=== PATIENT | female | born 1945 | race Caucasian/White ===

== ENCOUNTER 2019-10-18 12:16 | Outpatient (CLI) | payer MEDICARE, OTHER, SELFPAY ==
--- NOTE | ~2019-10-18 | DEXA_ITS ---
BMD(1) Young-Adult(2) Region (g/cm2) T-score WHO Classification L1 0.987 -1.3 Osteopenia L2 1.039 -1.4 Osteopenia L3 1.101 -0.9 Normal L4 1.136 -0.6 Normal L1-L4 1.073 -1.0 Normal Trend: L1-L4 Change vs Change vs Measured Age BMD(1) Baseline Previous Date ([age]) (g/cm2) (%) (%) 10/18/2019 [age] 1.073 baseline - 1 - Statistically 68% of repeat scans fall within 1SD (+- 0.010 g/cm2 for AP Spine L1-L4) 2 - [place] (Combined NHANES (ages 20-30) / [place] (ages 20-40)) AP Spine Reference Population (v112) 11 - World Health Organization - Definition of Osteoporosis and Osteopenia for Women: Normal = T-score at or above -1.0 SD; Osteopenia = T-score between -1.0 and -2.5 SD; Osteoporosis = T-score at or below -2.5 SD; (WHO definitions only apply when a young healthy Women reference database is used to determine T-scores.) Printed: 10/18/2019 1:00:54 PM (13.60)76:3.00:50.00:12.0 0.00:11.22 0.60x1.05 21.7:%Fat=37.3% 0.00:0.00 0.00:0.00 Filename: [id number] Scan Mode: Standard;OneScan 37.0 Proximiant [id number] BMD(1) Young-Adult(2,7) Region (g/cm2) T-score WHO Classification Neck Left 0.743 -2.1 Osteopenia Right 0.704 -2.4 Osteopenia Mean 0.724 -2.3 Osteopenia Difference 0.039 0.3 - Total Left 0.800 -1.6 Osteopenia Right 0.764 -1.9 Osteopenia Mean 0.782 -1.8 Osteopenia Difference 0.036 0.3 - Hip Moore Length Comparison (mm) TAMIKO chart results unavailable Trend: Total Mean Change vs Change vs Measured Age BMD(1) Baseline Previous Date (years) (g/cm2) (%) (%) 10/18/2019 [age] 0.782 baseline - 1 - Statistically 68% of repeat scans fall within 1SD (+- 0.010 g/cm2 for DualFemur Total) 2 - [place] (Combined NHANES (ages 20-30) / [place] (ages 20-40)) Femur Reference Population (v112) 7 - DualFemur Total T-score difference is 0.3. Asymmetry is None. 11 - World Health Organization - Definition of Osteoporosis and Osteopenia for Women: Normal = T-score at or above -1.0 SD; Osteopenia = T-score between -1.0 and -2.5 SD; Osteoporosis = T-score at or below -2.5 SD; (WHO definitions only apply when a young healthy Women reference database is used to determine T-scores.) Printed: 10/18/2019 1:00:54 PM (13.60); Filename: [id number]; Right Femur; 18.4:%Fat=42.7%; Neck Angle (deg)= 58; Scan Mode: Standard 37.0 uGy; Left Femur; 18.8:%Fat=42.8%; Neck Angle (deg)= 66; Scan Mode: Standard 37.0 uGy DOZ [id number] Dear Julian Robertson, Your patient Deandra Gilliam completed a BMD test on 10/18/2019 using the DOZ DXA System (analysis version: 13.60) manufactured by [employer]. The following summarizes the results of our evaluation. PATIENT BIOGRAPHICAL: Name: Deandra Gilliam Date: 1945 Height: 61.0 in. Gender: Female Exam Date: 10/18/2019 Weight: 155.0 lbs. Indications: Back Pain, Bilateral Ovarectomy, Caffeinated drinks, , Hip Pain, Hysterectomy Fractures: Treatments: Calcium, Hormone Therapy, Multivitamin ASSESSMENT: The BMD measured at Femur Neck Right is 0.704 g/cm2 with a T-score o
--- NOTE | ~2019-10-18 | CT_ITS ---
EXAMINATION:CT lung screening DATE: 10/18/2019 12:48 INDICATION: Personal history of tobacco dependence. Smoker who quit 4 years ago with 40 pack year his tory. TECHNIQUE: Computed tomography (CT) of the chest was performed without intravenous contrast. Automate d exposure control and iterative reconstruction technique were employed. The dose-length product (DLP ) was 58.20 mGy-cm. COMPARISON: CT abdomen 12/28/2008 FINDINGS: There is mild atelectasis bilaterally. A calcified left lung nodule and calcified left alexsandra r lymph nodes are consistent with old granulomatous disease. No pleural effusion. The heart size is n ormal. There are coronary artery calcifications. No pericardial effusion. There are changes of cholec ystectomy. There is mild thoracic spondylosis. IMPRESSION: 1. Lung-RADS category 1: Negative. Continue annual screening with noncontrast low-dose chest CT in 12 months. Reviewed, dictated and finalized at location B. IMPRESSION: 1. Lung-RADS category 1: Negative. Continue annual screening with noncontrast l ow-dose chest CT in 12 months.
[2019-10-18 12:35] LABS: Hematocrit 45.3 % (35.0-42.0); Hemoglobin 15.1 g/dL (11.7-13.8); Mean Corpuscular HGB Conc 33.3 g/dL (32.0-36.0); Mean Corpuscular Hemoglobin 30.3 pg (27.0-31.0); Mean Platelet Volume 10.9 fl (9.2-11.8); Platelet Count Result 185 K/mm3 (150-420); Red Blood Count 4.98 M/mm3 (4.20-5.40); Red Cell Distribution Width 13.7 % (11.6-14.4); White Blood Count 7.6 K/mm3 (4.8-10.8)
[2019-10-18 13:17] LABS: Alanine Aminotransferase 28 U/L (14-59); Albumin Level 3.9 g/dL (3.4-5.0); Alkaline Phosphatase 77 U/L (46-116); Anion Gap 6 mmol/L (8-16); Aspartate Amino Transferase 31 U/L (15-37); Bilirubin,Total 0.5 mg/dL (0.00-1.00); Blood Urea Nitrogen 16 mg/dL (7-18); Calcium 9.3 mg/dL (8.5-10.1); Carbon Dioxide 29 mmol/L (21-32); Chloride 103 mmol/L (98-108); Estimated Glomerular Filt Rate > 60; Glucose 93 mg/dL (70-99); Osmolality Calculated 287 mOsm/kg (285-295); Potassium 4.6 mmol/L (3.5-5.1); Sodium 138 mmol/L (136-145); Total Protein 7.5 g/dL (6.4-8.2)
== END 2019-10-18 12:17 | disposition home or self-care (01) ==
LOC: CHSIMG 12:19
PROVIDERS: PCP Family Medicine; Visit Provider Family Medicine
DX: Z12.2 Encounter for screening for malignant neoplasm of respiratory organs (principal); Z87.891 Personal history of nicotine dependence; M81.0 Age-related osteoporosis without current pathological fracture
CPT/HCPCS: 36415; 77080; 80053; 85027; G0297

== ENCOUNTER 2019-11-04 15:46 | Outpatient (CLI) | payer MEDICARE, OTHER, SELFPAY ==
--- NOTE | ~2019-11-04 | MM_ITS ---
EXAMINATION: MM screening [facility] BI w osmin HISTORY: Screening mammogram TECHNIQUE: Craniocaudal and mediolateral oblique 3-D tomosynthesis images were obtained and synthetic 2-D images were generated. CAD analysis was submitted and interpreted. COMPARISON: 03/11/2018, 01/09/2017, 12/28/2013 BREAST PARENCHYMAL COMPOSITION: There are scattered areas of fibroglandular density. FINDINGS: Scattered benign-appearing calcifications are present. Also noted is stable focal asymmetry in the middle third of the upper outer quadrant of the right breast. There is no evidence of suspici ous mass, calcification, or architectural distortion to suggest malignancy in either breast. There garcia s been no suspicious interval change. IMPRESSION: 1. No mammographic evidence of malignancy. 2. Recommend routine screening mammography in one year. BI-RADS Category 2: Benign finding(s). Reviewed, dictated and finalized at location A.
== END 2019-11-04 15:47 | disposition home or self-care (01) ==
PROVIDERS: PCP Family Medicine; Visit Provider Obstetrics & Gynecology
DX: Z12.31 Encounter for screening mammogram for malignant neoplasm of breast (principal)
CPT/HCPCS: 77063; 77067

== ENCOUNTER 2019-12-14 02:13 | Outpatient (CLI) | payer MEDICARE, OTHER, SELFPAY ==
[2019-12-14 18:17] LABS: SARS-CoV-2 RNA PCR Negative
== END 2019-12-14 02:14 | disposition home or self-care (01) ==
LOC: ANHCOVIDDT 02:13
PROVIDERS: PCP Family Medicine; Visit Provider Surgery
DX: Z01.812 Encounter for preprocedural laboratory examination (principal); Z20.828 Contact with and (suspected) exposure to other viral communicable diseases
CPT/HCPCS: 87635; C9803; U0003

== ENCOUNTER 2019-12-16 00:19 | Day surgery (SDC) | payer MEDICARE, OTHER, SELFPAY ==
[2019-12-09 14:33] VITALS: BMI 28.7
[2019-12-16] MEDS: LACTATED RINGERS 1,000 ML 150 ML IV CONT (09:29)
[2019-12-16 09:30] VITALS: BP 124/75; PULSE 59; RESP 16; TEMP 36.4; O2SAT 100; BMI 28.2
--- NOTE | 2019-12-16 10:02 | WPDANESEPPF ---
Anes - Initial Pre Proc Eval Procedure: Operation Date: 12/16/19 11:00 Proposed Procedures p Screening Colonoscopy - Jaxson Marcus DO Date/Time: 12/16/19 10:02 Surgeon: Jaxson Marcus DO Pre Op Diagnosis: Neoplasm Screening Patient Data Age: 74 Gender: F Height: 5 ft 1 in Weight: 67.8 kg Last Vital Signs Temp 97.6 F 12/16/19 09:30 Pulse 59 L 12/16/19 09:30 Resp 16 12/16/19 09:30 BP 124/75 12/16/19 09:30 Pulse Ox 100 12/16/19 09:30 Allergies Allergy/AdvReac Type Severity Reaction Status Date / Time codeine Allergy Unknown Swelling Verified 12/16/19 09:19 of Lip/Tongue/Throat Penicillins Allergy Unknown Unknown Verified 12/16/19 09:19 Sulfa (Sulfonamide AdvReac Intermediate NAUSEA Verified 12/16/19 09:19 Antibiotics) Home Medications Medication Instructions Recorded Confirmed Type alendronate [Fosamax] 70 mg PO WEEKLY 12/09/19 12/09/19 History multivit with min-folic acid 1 mg PO DAILY 12/09/19 12/09/19 History [Adult One Daily Multivitamin] Patient hx anesthesia problems: none Family hx anesthesia problems: none [facility] Past Medical History Medical History (Updated 10/11/19 @ 09:30 by Julian Robertson DO) History of tobacco abuse No active medical problems Osteoarthritis Osteopenia after menopause Surgical History Surgical History (Updated 10/11/19 @ 09:12 by Bryanna Delgado) History of appendectomy History of cholecystectomy History of hysterectomy Family History Family History (Updated 10/11/19 @ 09:13 by Bryanna Delgado) Mother Heart disease Social History Social History (Updated 10/11/19 @ 09:13 by Bryanna Delgado) Smoking status: Former smoker Tobacco type: cigarettes Smoking end date: 03/10/15 Substance use: former Substance use type: does not use Living arrangements: alone Gender identity (if verbalized by the patient): Female Spiritual care concerns: No Anes - Eval Final PreProcedure Day of Procedure 12/16/19 10:02 Patient weight: normal Heart: regular rate and rhythm Lungs: clear to auscultation Airway: Mallampati scale class II Neurological: alert and oriented Last oral intake: >/= 8 hours ASA classification: II Emergent: no Anesthetic plan: proceed Anesthesia type and monitoring: general GIVS and standard monitoring Informed Consent: The patient's anesthetic plan and its attendant risks and benefits were discussed with the patient/family/POA. Questions were solicited and answers provided to the satisfaction of the patient/family/POA.
--- NOTE | 2019-12-16 10:11 | PM.IMHP ---
H&P: HPI History of Present Illness Date/Time: 12/16/19 10:11 Chief complaint: Neoplasm Screening Narrative: Deandra Gilliam is a 74 year old female who presents for colonoscopy. She has never had one before. She recently had a Cologard test done which was positive. She denies any hematochezia or melena. She denies any family hx of colon cancer. Review of Systems Review of Systems: All systems reviewed & are unremarkable except as noted in HPI and below Constitutional: Constitutional: Denies chills, Denies fever(s), Denies headache(s) and Denies weight loss Eyes: Eyes: Denies change in vision ENT: Denies dizziness, Denies headache(s), Denies neck mass and Denies throat swelling Cardiovascular: Cardiovascular: Denies chest pain, Denies lightheadedness and Denies dyspnea Respiratory: Respiratory: Denies cough, Denies dyspnea and Denies wheezing Gastrointestinal: Gastrointestinal: Denies abdominal pain, Denies change in bowel habits, Denies nausea and Denies vomiting Genitourinary: Genitourinary: Denies hematuria and Denies dysuria Musculoskeletal: Musculoskeletal: Reports as per HPI Integumentary/Breasts: Skin/Breast: Reports as per HPI Neurologic: Denies dizziness and Denies headache(s) Allergic/Immunologic: Allergic/Immunologic: Denies throat swelling and Denies wheezing PMFSH Past Medical History Medical History History of tobacco abuse No active medical problems Osteoarthritis Osteopenia after menopause Surgical History Surgical History History of appendectomy History of cholecystectomy History of hysterectomy Family History Family History Mother Heart disease Social History Social History Smoking status: Former smoker Tobacco type: cigarettes Smoking end date: 03/10/15 Substance use: former Substance use type: does not use Living arrangements: alone Gender identity (if verbalized by the patient): Female Spiritual care concerns: No Meds Home Medications and Allergies Home Medications Medication Instructions Recorded Confirmed Type alendronate [Fosamax] 70 mg PO WEEKLY 12/09/19 12/09/19 History multivit with min-folic acid 1 mg PO DAILY 12/09/19 12/09/19 History [Adult One Daily Multivitamin] Allergies Allergy/AdvReac Type Severity Reaction Status Date / Time codeine Allergy Unknown Swelling Verified 12/16/19 09:19 of Lip/Tongue/Throat Penicillins Allergy Unknown Unknown Verified 12/16/19 09:19 Sulfa (Sulfonamide AdvReac Intermediate NAUSEA Verified 12/16/19 09:19 Antibiotics) Vital Signs Vital Signs - 24 hr 12/16/19 09:30 Temperature 36.4 C Pulse Rate 59 L Respiratory Rate 16 Blood Pressure 124/75 Pulse Oximetry 100 Exam Const: General: no acute distress and alert Orientation/consciousness: patient oriented x3 HENMT: Head: normocephalic and atraumatic Ears: hearing grossly normal bilaterally General nose exam: Normal nares present Mouth: Yes Normal oral and palatal mucosa present Eyes: Periorbital: periorbital findings normal Sclera: sclerae normal EOM: EOMs intact bilaterally Neck: Neck: normal visual inspection, no lymphadenopathy and trachea midline Chest: Chest palpation & inspection: normal inspection of the chest Resp: Effort & Inspection: normal respiratory effort Auscultation: clear to auscultation bilaterally Cardio: Jugular venous distension: no JVD Rate: regular rate Rhythm: regular rhythm Heart sounds: S1 normal heart sound present and S2 normal heart sound present Peripheral pulses: Peripheral pulses 2+ throughout GI: Inspection: normal to inspection GI Palp: Yes Soft to palpation, No Tenderness to palpation present (GI), No Guarding due to palpation present (GI) and No Rebou
[2019-12-16 11:07] VITALS: BP 120/70; PULSE 75; RESP 18; O2SAT 99
[2019-12-16 11:17] VITALS: BP 115/66; PULSE 71; RESP 20; O2SAT 100
[2019-12-16 11:27] VITALS: BP 134/61; PULSE 60; RESP 18; O2SAT 100
== END 2019-12-16 11:48 | disposition home or self-care (01) ==
PROVIDERS: PCP Family Medicine; Visit Provider Surgery
PROC: 0DJD8ZZ Inspection of Lower Intestinal Tract, Via Natural or Artificial Opening Endoscopic (ICD-10-PCS; CPT 45378; principal; 2019-12-16 11:00)
DX: Z12.11 Encounter for screening for malignant neoplasm of colon (principal); K63.5 Polyp of colon; K57.30 Diverticulosis of large intestine without perforation or abscess without bleeding; R19.5 Other fecal abnormalities; Z87.891 Personal history of nicotine dependence; Z90.49 Acquired absence of other specified parts of digestive tract
CPT/HCPCS: 45385; 88305; J2704; J7120

== ENCOUNTER 2020-10-24 10:36 | Outpatient (CLI) | payer MEDICARE, OTHER, SELFPAY ==
[2020-10-24 12:14] LABS: SARS-CoV-2 RNA PCR Positive (Negative)
== END 2020-10-24 10:37 | disposition home or self-care (01) ==
LOC: CHSLAB 10:40
PROVIDERS: PCP Family Medicine; Visit Provider Family Medicine
DX: U07.1 COVID-19 (principal)
CPT/HCPCS: C9803; U0003; U0005

== ENCOUNTER 2021-06-01 14:03 | Outpatient (CLI) | payer MEDICARE, OTHER, SELFPAY ==
[2021-06-01 14:16] LABS: Basophils Absolute Auto 0.07 K/mm3 (0.00-0.10); Basophils Percent Auto 0.8 % (0.0-1.0); Eosinophils Absolute Auto 0.08 K/mm3 (0.02-0.50); Hematocrit 44.1 % (35.0-42.0); Hemoglobin 14.4 g/dL (11.7-13.8); Immature Granulocyte Absolute 0.04 K/mm3 (0.00-0.00); Immature Granulocyte Percent A 0.5 % (0.0-0.0); Lymphocytes Percent Auto 19.3 % (18.0-42.0); Mean Corpuscular HGB Conc 32.7 g/dL (32.0-36.0); Mean Corpuscular Hemoglobin 29.8 pg (27.0-31.0); Mean Corpuscular Volume 91.3 fL (78.0-102.0); Mean Platelet Volume 9.5 fl (9.2-11.8); Monocytes Absolute Auto 0.89 K/mm3 (0.10-0.90); Monocytes Percent Auto 10.7 % (2.0-11.0); Neutrophils Absolute Auto 5.6 K/mm3 (1.7-7.2); Neutrophils Percent Auto 67.7 % (50.0-70.0); Platelet Count Result 294 K/mm3 (150-420); Red Blood Count 4.83 M/mm3 (4.20-5.40); Red Cell Distribution Width 13.6 % (11.6-14.4); White Blood Count 8.3 K/mm3 (4.8-10.8)
[2021-06-01 14:46] LABS: Alanine Aminotransferase 27 U/L (14-59); Albumin Level 3.8 g/dL (3.4-5.0); Alkaline Phosphatase 73 U/L (46-116); Anion Gap 11 mmol/L (8-16); Aspartate Amino Transferase 15 U/L (15-37); Bilirubin,Total 0.4 mg/dL (0.00-1.00); Blood Urea Nitrogen 21 mg/dL (7-18); Calcium 9.3 mg/dL (8.5-10.1); Carbon Dioxide 26 mmol/L (21-32); Chloride 101 mmol/L (98-108); Cholesterol 177 mg/dL (0-200); Estimated Glomerular Filt Rate > 60; Glucose 95 mg/dL (70-99); HDL Direct 69 mg/dL (40-60); LDL Cholesterol Calculated 89 mg/dL (<130); Osmolality Calculated 289 mOsm/kg (285-295); Potassium 4.1 mmol/L (3.5-5.1); Sodium 138 mmol/L (136-145); Total Protein 7.2 g/dL (6.4-8.2); Triglycerides 96 mg/dL (0-150)
[2021-06-04 18:17] LABS: Vitamin D 25 Hydroxy 45 ng/mL (30-100)
== END 2021-06-01 14:04 | disposition home or self-care (01) ==
LOC: CHSLAB 14:06
PROVIDERS: PCP Family Medicine; Visit Provider Nurse Practitioner Family
DX: M85.80 Other specified disorders of bone density and structure, unspecified site (principal); Z87.891 Personal history of nicotine dependence; Z13.6 Encounter for screening for cardiovascular disorders
CPT/HCPCS: 36415; 80053; 80061; 82306; 85025

== ENCOUNTER 2021-07-24 11:56 | Outpatient (NON) | payer MEDICARE, OTHER, SELFPAY | END 2021-07-24 11:57 | disposition home or self-care (01) | LOC: CHSLAB 11:59 | PROVIDERS: PCP Nurse Practitioner Family; Visit Provider Nurse Practitioner Family | DX: R39.9 Unspecified symptoms and signs involving the genitourinary system (principal) | CPT/HCPCS: 87077; 87086; 87088; 87186 ==

== ENCOUNTER 2022-06-19 09:00 | Outpatient (CLI) | payer MEDICARE, SELFPAY ==
[2022-06-19 09:26] LABS: Basophils Absolute Auto 0.07 K/mm3 (0.00-0.10); Basophils Percent Auto 1.2 % (0.0-1.0); Eosinophils Absolute Auto 0.15 K/mm3 (0.02-0.50); Eosinophils Percent Auto 2.5 % (1.0-6.0); Hematocrit 45.3 % (35.0-42.0); Hemoglobin 14.7 g/dL (11.7-13.8); Immature Granulocyte Absolute 0.02 K/mm3 (0.00-0.00); Immature Granulocyte Percent A 0.3 % (0.0-0.0); Lymphocytes Absolute Auto 1.67 K/mm3 (1.10-4.50); Lymphocytes Percent Auto 28.1 % (18.0-42.0); Mean Corpuscular HGB Conc 32.5 g/dL (32.0-36.0); Mean Corpuscular Volume 92.4 fL (78.0-102.0); Mean Platelet Volume 9.7 fl (9.2-11.8); Monocytes Percent Auto 11.8 % (2.0-11.0); Neutrophils Absolute Auto 3.3 K/mm3 (1.7-7.2); Neutrophils Percent Auto 56.1 % (50.0-70.0); Platelet Count Result 293 K/mm3 (150-420); Red Cell Distribution Width 13.8 % (11.6-14.4); White Blood Count 5.9 K/mm3 (4.8-10.8)
[2022-06-19 09:43] LABS: Alanine Aminotransferase 36 U/L (14-59); Albumin Level 3.7 g/dL (3.4-5.0); Alkaline Phosphatase 79 U/L (46-116); Anion Gap 7 mmol/L (8-16); Aspartate Amino Transferase 21 U/L (15-37); Bilirubin,Total 0.5 mg/dL (0.00-1.00); Blood Urea Nitrogen 19 mg/dL (7-18); Calcium 9.2 mg/dL (8.5-10.1); Carbon Dioxide 31 mmol/L (21-32); Chloride 104 mmol/L (98-108); Cholesterol 196 mg/dL (0-200); Estimated Glomerular Filt Rate > 60; Glucose 101 mg/dL (70-99); HDL Direct 65 mg/dL (40-60); LDL Cholesterol Calculated 114 mg/dL (<130); Osmolality Calculated 296 mOsm/kg (285-295); Potassium 4.4 mmol/L (3.5-5.1); Sodium 142 mmol/L (136-145); Total Protein 7.5 g/dL (6.4-8.2); Triglycerides 87 mg/dL (0-150)
== END 2022-06-19 09:01 | disposition home or self-care (01) ==
LOC: CHSLAB 09:05
PROVIDERS: PCP Family Medicine; Visit Provider Nurse Practitioner Family
DX: E78.5 Hyperlipidemia, unspecified (principal)
CPT/HCPCS: 36415; 80053; 80061; 85025

== ENCOUNTER 2022-06-24 14:14 | Outpatient (CLI) | payer MEDICARE, SELFPAY ==
--- NOTE | ~2022-06-24 | DEXA_ITS ---
Bone Density Report Name: LULÚ MEDEIROS Age: 76 Sex: Female Ethnicity: Date of : 1945 Indication: postmenopausal; screening for osteoporosis; height loss; prior fracture; hysterectomy; Referring Provider: SOBEIDA COFFMAN Study: Bone densitometry was performed. Exam Date: June 24, 2022 Accession number: [id number] Bone Density: Region BMD T-score Z-score Classification AP Spine(L1-L4) 0.882 -1.5 1.1 Osteopenia Femoral Neck (Left) 0.607 -2.2 0.1 Osteopenia Total Hip (Left) 0.760 -1.5 0.5 Osteopenia Femoral Neck (Right) 0.620 -2.1 0.2 Osteopenia Total Hip (Right) 0.747 -1.6 0.4 Osteopenia Femoral Neck Mean 0.614 -2.1 0.1 Osteopenia Total Hip Mean 0.754 -1.5 0.5 Osteopenia World Health Organization criteria for BMD impression classify patients as: Normal (T-score at or above -1.0), Osteopenia (T-score between -1.0 and -2.5), or Osteoporosis (T-score at or below -2.5). 10-year Fracture Risk(1): Major Osteoporotic Fracture 15% Hip Fracture 6.0% Reported Risk Factors: [place] (), Neck BMD=0.607, BMI=29.7, previous fracture, smoking (1) FRAX(R) Version 3.08. Fracture probability calculated for an untreated patient. Fracture probability may be lower if the patient has received treatment. Clinical Information Provided by Patient: Has had a low trauma fracture Smokes Has used the following medications: Fosamax (i.e. alendronate) Has the following medical conditions: Hysterectomy Patient maximum height was 62 Menopause Age: 28 No regular weight bearing exercise Does not regularly consume dairy products Drinks caffeinated beverages Onset of menses at age 12 Number of children 2 Impression: The patient has low bone mass, based on the Left Femoral Neck T-score. The patient has risk factors, including: smoking, previous fracture. Discussion: BONE DENSITY IS LOW AT ONE OR MORE SKELETAL SITES. This patient's lowest T-score is low at one or more skeletal sites. It meets the World Health Organization's (WHO) criteria for ?low bone mass? (T-score between -1.0 and -2.5). The patient's 10-year risk of fracture as calculated by FRAX is less than the threshold where pharmacological therapy is recommended by the National Osteoporosis Foundation (NOF). However, all treatment decisions require clinical judgment and consideration of individual patient factors, including patient preferences, comorbidities, previous drug use, risk factors not captured in the FRAX model (e.g., frailty, falls, vitamin D deficiency, increased bone turnover, interval significant decline in bone density) and possible under or overestimation of fracture risk by FRAX. The patient should follow a healthful lifestyle (good nutrition with adequate calcium and vitamin D, and appropriate weig
== END 2022-06-24 14:15 | disposition home or self-care (01) ==
LOC: CHSIMG 14:15
PROVIDERS: PCP Family Medicine; Visit Provider Family Medicine
DX: Z78.0 Asymptomatic menopausal state (principal); M85.89 Other specified disorders of bone density and structure, multiple sites
CPT/HCPCS: 77080

== ENCOUNTER 2022-09-25 08:49 | Outpatient (CLI) | payer MEDICARE, SELFPAY ==
--- NOTE | ~2022-09-25 | MM_ITS ---
EXAMINATION: MM screening [facility] BI w osmin HISTORY: Screening TECHNIQUE: Craniocaudal and mediolateral oblique 3-D tomosynthesis images were obtained and synthetic 2-D images were generated. CAD analysis was submitted and interpreted. COMPARISON: No prior mammogram is available for comparison at this institution. BREAST PARENCHYMAL COMPOSITION: There are scattered areas of fibroglandular density. FINDINGS: There is no evidence of suspicious mass, calcification, or architectural distortion to sugg est malignancy in either breast. There has been no suspicious interval change. IMPRESSION: 1. No mammographic evidence of malignancy. 2. Recommend routine screening mammography in one year. BI-RADS Category 1: Negative Reviewed, dictated and finalized at location A.
== END 2022-09-25 08:50 | disposition home or self-care (01) ==
LOC: CHSIMG 08:50
PROVIDERS: PCP Family Medicine; Visit Provider Family Medicine
DX: Z12.31 Encounter for screening mammogram for malignant neoplasm of breast (principal)
CPT/HCPCS: 77063; 77067

== ENCOUNTER 2023-01-10 11:08 | Outpatient (NON) | payer MEDICARE, SELFPAY | END 2023-01-10 11:09 | disposition home or self-care (01) | LOC: CHSLAB 11:10 | PROVIDERS: Visit Provider Family Medicine | DX: N39.0 Urinary tract infection, site not specified (principal) | CPT/HCPCS: 87077; 87086; 87088; 87186 ==

== ENCOUNTER 2023-07-23 09:03 | Outpatient (NON) | payer MEDICARE, SELFPAY | END 2023-07-23 09:04 | disposition home or self-care (01) | LOC: CHSLAB 09:04 | PROVIDERS: Visit Provider Family Medicine | DX: R35.0 Frequency of micturition (principal) | CPT/HCPCS: 87086; 87088 ==

== ENCOUNTER 2023-11-24 14:05 | Outpatient (NON) | payer MEDICARE, SELFPAY ==
[2023-11-24 14:15] LABS: Add Urine Microscopic? YES; Appearance Urine Clear (Clear); Bilirubin Urine Negative (Negative); Blood Urine 2+ (Negative); Color Urine Light Yellow (Yellow); Glucose Urine UA Negative (Negative); Ketones Urine Negative (Negative); Leukocyte Esterase Ur 3+ (Negative); Nitrate Urine Negative (Negative); Protein Urine Negative (Negative); Specific Grav Ur 1.015 (1.010-1.020); Urobilinogen Urine 0.2 mg/dL (0.2-1.0); pH Urine 6.5 (5.0-8.0)
[2023-11-24 14:26] LABS: Squamous Epithelial Cell Urine Few /hpf (Few); WBC Urine 21-30 /hpf (0-3)
[2023-11-24 14:27] LABS: Bacteria Urine 2+ /hpf
== END 2023-11-24 14:06 | disposition home or self-care (01) ==
LOC: CHSLAB 14:07
PROVIDERS: PCP Nurse Practitioner Family; Visit Provider Nurse Practitioner Family
DX: R30.0 Dysuria (principal); N39.0 Urinary tract infection, site not specified
CPT/HCPCS: 81001; 87086; 87088

== ENCOUNTER 2024-01-01 08:57 | Outpatient (CLI) | payer MEDICARE, SELFPAY ==
[2024-01-01 10:45] LABS: Alanine Aminotransferase 32 U/L (14-59); Albumin Level 3.7 g/dL (3.4-5.0); Alkaline Phosphatase 77 U/L (46-116); Anion Gap 8 mmol/L (4-12); Aspartate Amino Transferase 21 U/L (15-37); Bilirubin,Total 0.5 mg/dL (0.00-1.00); Blood Urea Nitrogen 17 mg/dL (7-18); Calcium 9.7 mg/dL (8.5-10.1); Carbon Dioxide 30 mmol/L (21-32); Chloride 104 mmol/L (98-108); Cholesterol 192 mg/dL (0-200); Estimated Glomerular Filt Rate > 60; Glucose 89 mg/dL (70-99); HDL Direct 67 mg/dL (40-60); LDL Cholesterol Calculated 106 mg/dL (<130); Osmolality Calculated 294 mOsm/kg (285-295); Potassium 4.9 mmol/L (3.5-5.1); Sodium 142 mmol/L (136-145); Total Protein 7.3 g/dL (6.4-8.2); Triglycerides 95 mg/dL (0-150)
== END 2024-01-01 08:58 | disposition home or self-care (01) ==
LOC: CHSLAB 08:59
PROVIDERS: PCP Family Medicine; Visit Provider Nurse Practitioner Family
DX: Z13.6 Encounter for screening for cardiovascular disorders (principal); I10 Essential (primary) hypertension
CPT/HCPCS: 36415; 80053; 80061

== ENCOUNTER 2025-01-11 08:32 | Outpatient (CLI) | payer MEDICARE, SELFPAY ==
--- OUTSIDE RECORDS SUMMARY | 2025-01-11 08:56 | XMS_ITS | Data Portability ---
Author Organization [facility], [place] Address [address] [place] [address] Assessment Encounter Date Assessment Date Assessment LastModified by Organization Details LastModified Time 10/15/2019 10/15/2019 Annual gynecological exam performed. Patient will come back in a year unless there are new symptoms. Not available 10/15/2019 12:18:53 Plan of Treatment Reminders Order Date Submit Date Provider Last Modified By Organization Details Last Modified Time Details Appointments None recorded. Lab None recorded. Referral None recorded. Procedures None recorded. Surgeries None recorded. Imaging None recorded. Medication Orders Estrace 0.01% (0.1 mg/gram) vaginal cream 2019 020 [facility]FACE [id number], [address] [place], [place], [id number], 0 11:35:46 nystatin- triamcino lone 100,000 unit/gram -0.1 % topical ointment 2019 020 [email or web address] [facility] #[id number], [address] [place], [place], [id number], 0 11:11:40 Estrace 0.01% (0.1 mg/gram) vaginal cream 2019 020 [email or web address] [facility] #[id number], [address] [place], [place], [id number], 0 11:11:38 Patient TargetsNo targets recorded. Patient Instructions Encounter Date Encounter Id Patient Instructions Last Modified By Organization Details Last Modified Time 10/15/2019 [id number] [email or web address] Not available 12:50:39 11/12/2019 [id number] [email or web address] Not available 11:33:21 Reason for Referral None Reported. Results Created Date Observation Date Name Description Value Unit Range Abnormal Flag Note LastModifiedBy Organization Detail LastModifiedTime 10/15/19 20 10/16/2019 bacte rial vagin osis + vagin itis panel , vagin al trichomonas vaginalis, aptima (panther) NOT DETECT ED normal Trich omona s vagin dayday: DNA testi ng perfo rmed by Trans c[employer] ion [employer] carroll Ampli ficat ion (TMA) These resul ts shoul d be inter prete d in light of all clini edelmira and labor atory findi ngs. This assay is highl y accur ate, but rare false posit matthias and negat matthias resul ts may occur . Posit matthias resul ts in low preva lence popul ation s may requi re re-ev aluat ion. A negat matthias resul t does not precl ude a possi ble infec tion due to a speci men inade quacy or sampl ing error . Test perfo rmed by [facility], d/b/a Bridget davis, [address], [place] [address] , Issac Vargas ra, DO, Labor atory Direc tor. Gardn erell a vagin dayday, Aide da speci es: Genom ic DNA is isola carroll from patie nt speci mens by stand molly labor atory techn iques and rosie zed using custo m OpenA rray plate s, perfo rmed on the [employer] Studi o 12K Flex Real Time PCR syste m. A posit matthias resul t is provi ded for patho genic bacte michaela, virus and/o r funga l speci es based on detec tion of ampli ficat ion produ cts. Melonie l vagin al kaushal resul ts of Melonie l or [place] carroll are deter mined by calcu latin g the ratio of the organ ism to the total bacte michaela prese nt in the speci men, and dora ring that ratio to a PathG roup patie nt popul ation . Overa ll resul ts of Melonie l, Borde rline and Abnor mal are deter mined using a proba bilit y model which was devel oped by an exten sive rosie sis and integ ratio n of clini edelmira thres holds for marke r organ isms on a large set of sympt omati c & asymp tomat ic speci mens. Patie nt popul ation s with diffe rent demog raphi cs from the PathG roup model popul ation may have diffe rent indic ator organ isms with diffe rent relat matthias ratio s, which would influ ence the final resul ts. Resul ts shoul d be inter prete d in the gail xt of all clini edelmira and labor atory findi ngs. The test was devel oped and its perfo rmanc e tamika cteri stics deter mined by [employer], [employer] d/b/a [employer] Ade[employer]. It has not been clear ed or appro lee ann by the U.S. Food and Drug Admin istra tion. The FDA has deter mined that such clear ance or appro gianfranco is not neces tali. Perti nent refer ence inter vals are avail able from the labor atory on reque st. Test( s) perfo rmed by [facility] [employer], [employer], d/b/a Path[facility]ell clarke, [address] [place] [address] , Issac Vargas ra, DO, Labor atory Direc tor. Not Available [facility] ([facility]) [address] [facility] [address], [place], [address], 10/19/2019 20:07:08 10/15/19 20 10/19/2019 bacte rial vagin osis + vagin itis panel , vagin al gerardo sp. Not Detect ed normal Trich omona s vagin dayday: DNA testi ng perfo rmed by Trans cript ion Media carroll Ampli ficat ion (TMA) These resul ts shoul d be inter prete d in light of all clini edelmira and labor atory findi ngs. This assay is highl y accur ate, but rare false posit matthias and negat matthias resul ts may occur . Posit matthias resul ts in low preva lence popul ation s may requi re re-ev aluat ion. A negat matthias resul t does not precl ude a possi ble infec tion due to a speci men inade quacy or sampl ing error . Test perfo rmed by [facility], d/b/a Path[facility]ell davis, [address], [place] [address] , Issac Vargas ra, DO, Labor atory Direc tor. Chela zhong a ghulam naylor, Aide da speci es: Genom ic DNA is isola carroll from patie nt speci mens by stand omlly labor atory techn iques and rosie zed using custo m OpenA rray plate s, perfo rmed on the [employer] Stud[employer] o 12K Flex Real Time PCR syste m. A posit matthias resul t is provi ded for patho genic bacte michaela, virus and/o r funga l speci es based on detec tion of ampli ficat ion produ cts. Melonie l vagin al kaushal resul ts of Melonie l or [place] carroll are deter mined by calcu latin g the ratio of the organ ism to the total bacte michaela prese nt in the speci men, and dora ring that ratio to a PathG roup patie nt popul ation . Overa ll resul ts of Melonie l, Borde rline and Abnor mal are deter mined using a proba bilit y model which was devel oped by an exten sive rosie sis and integ ratio n of clini edelmira thres holds for marke r organ isms on a large set of sympt omati c & asymp tomat ic speci mens. Patie nt popul ation s with diffe rent demog raphi cs from the PathG roup model popul ation may have diffe rent indic ator organ isms with diffe rent relat matthias ratio s, which would influ ence the final resul ts. Resul ts shoul d be inter prete d in the gail xt of all clini edelmira and labor atory findi ngs. The test was devel oped and its perfo rmanc e tamika cteri stics deter mined by [employer], [employer] d/b/a [employer]. It has not been clear ed or appro lee ann by the U.S. Food and Drug Admin istra tion. The FDA has deter mined that such clear ance or appro gianfranco is not neces tali. Perti nent refer ence inter vals are avail able from the labor atory on reque st. Test( s) perfo rmed by [employer], [employer], d/b/a Path tricia, [address], [place] [address] , Issac Vargas ra, DO, Labor atory Direc tor. Not Available [facility]) [address], [place], [address], 10/19/2019 20:07:08 10/15/19 20 10/19/2019 bacte rial vagin osis + vagin itis panel , vagin al gardnerella vaginalis Detect ed abnormal Trich omona s vagin dayday: DNA testi ng perfo rmed by Trans c[employer] Media carroll Ampli ficat ion (TMA) These resul ts shoul d be inter prete d in light of all clini edelmira and labor atory findi ngs. This assay is highl y accur ate, but rare false posit matthias and negat matthias resul ts may occur . Posit matthias resul ts in low preva lence popul ation s may requi re re-ev aluat ion. A negat matthias resul t does not precl ude a possi ble infec tion due to a speci men inade quacy or sampl ing error . Test perfo rmed by [employer], [employer], d/b/a PathG roup, [address], [place] [address] , Issac Vargas ra, DO, Labor atory Direc tor. Chela erell a vagin dayday, Aide da speci es: Genom ic DNA is isola carroll from patie nt speci mens by stand molly labor atory techn iques and rosie zed using custo m OpenA rray plate s, perfo rmed on the [employer] Studi o 12K Flex Real Time PCR syste m. A posit matthias resul t is provi ded for patho genic bacte michaela, virus and/o r funga l speci es based on detec tion of ampli ficat ion produ cts. Melonie l vagin al kaushal resul ts of Melonie l or [place] carroll are deter mined by calcu latin g the ratio of the organ ism to the total bacte michaela prese nt in the speci men, and dora ring that ratio to a PathG roup patie nt popul ation . Overa ll resul ts of Melonie l, Borde rline and Abnor mal are deter mined using a proba bilit y model which was devel oped by an exten sive rosie sis and integ ratio n of clini edelmira thres holds for marke r organ isms on a large set of sympt omati c & asymp tomat ic speci mens. Patie nt popul ation s with diffe rent demog raphi cs from the PathG roup model popul ation may have diffe rent indic ator organ isms with diffe rent relat matthias ratio s, which would influ ence the final resul ts. Resul ts shoul d be inter prete d in the gail xt of all clini edelmira and labor atory findi ngs. The test was devel oped and its perfo rmanc e tamika cteri stics deter mined by [facility], [facility] d/b/a [facility] roup. It has not been clear ed or appro lee ann by the U.S. Food and Drug Admin istra tion. The FDA has deter mined that such clear ance or appro gianfranco is not neces tali. Perti nent refer ence inter vals are avail able from the labor atory on reque st. Test( s) perfo rmed by [facility], d/b/a Path[facility] rousantiago, [address], [place] [address] , Issac Vargas ra, DO, Labor atory Direc tor. Not Available [facility] [address], [place], [address], 10/19/2019 20:07:08 11/12/19 20 11/17/2019 surgi edelmira patho logy study surgical pathology View Report ACCES AMI #: [id number] Patie nt Name: LISY Connolly KEYONNA TORRES Peter Age-S ex-DO B: 74y F [birth year] Proce dure Date: 11/11 Acces ami Date: Pt Acct# : Repor t Date: Locat ion: OFFIC E Physi terrence( s): Diaz samson Fried dread P A T H O L O G Y R E P O R T DIAGN OSIS: Vulva , biops y: React matthias squam ous mucos a and sligh t chron ic infla mmati on. See comme nt. Comme nts: No intra epith elial lesio n or invas matthias neopl asm is ident ified . The squam ous mucos a exhib its sligh t nonsp ecifi c react matthias thick ening . A few scatt ered lymph ocyte s are prese nt in the submu cosa, but subst antia l infla mmati on is not prese nt. Featu res of a speci fic derma tosis such as liche n scler osus are lacki ng. Santana Vuong MD elect becca bhatti 11/16 05:09 PM Gross Descr iptio n: Recei lee ann in forma dhruv label ed Keyonna connolly, vulva r biops y and consi sts of a light garza firm rubbe ry tissu e measu ring 0.4 cm. The tissu e is entir kayli submi tted in 1 casse tte, . (REAGAN, SS7,m bj) Micro scopi c Descr iptio n: Micro scopi c exami natio n is perfo rmed. 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 Case revie wed and diagn osis rende red at [facility] [employer] Patho logis [employer], d/b/a [employer], [address], [place] [address] Kingston Blancas MD, Labor PsyQic tor. CONFI DENTI AL Not Available [facility] ([facility]) [address], [place], [address], 11/17/2019 18:12:11 11/04/19 20 11/04/2019 MAMMO , scree ricky, bilat eral No observ ation record ed. [facility] (Lab) [address], [place], [address], 11/05/2019 12:57:06 Result Notes None recorded. Problems Name Problem SNOMED Code Status Onset Date Resolution Date Notes Provider Name and Address Organization Details Recorded Time Screening for malignant neoplasm of cervix Active 2010 Screening for malignant neoplasms of the cervix;Rec orded Elsewhere: No Locatio n: [facility] Edilma rce: EHR Chroni c: N Practice ID: 0001 Billa ble Time: 10:00:00 AM Not Available [facility] 0 15:51:38 Adult health examinatio n Active 2010 Routine Medical Exam;Recor ded Elsewhere: No Locatio n: [facility] rce: EHR Chroni c: N Practice ID: 0001 Billa ble Time: 10:00:00 AM Not Available [facility] 0 15:51:38 Vaginitis and vulvovagin itis Active 2010 Vaginitis; Recorded Elsewhere: No Locatio n: [facility] rce: EHR Chroni c: N Practice ID: 0001 Billa ble Time: 10:00:00 AM Not Available [facility] 0 15:51:38 Vitiligo 87214781 Active 2011 Vitiligo;R ecorded Elsewhere: No Locatio n: [facility] rce: EHR Chroni c: N Practice ID: 0001 Billa ble Time: 10:00:00 AM Not Available [facility] 0 15:51:38 Specialize d medical examinatio n Active 2013 Gynecologi edelmira Examinatio n;Recorded Elsewhere: No Locatio n: [facility] rce: EHR Chroni c: N Practice ID: 0001 Billa ble Time: 01:30:00 PM Not Available [facility] 0 15:51:38 Acute vulvitis 70055112 Active 2015 Vulvitis;R ecorded Elsewhere: No Locatio n: [facility] rce: EHR Chroni c: N Practice ID: 0001 Billa ble Time: 11:45:00 AM Not Available [facility] 0 15:51:[address] Concept Active 2016 Encntr for general adult medical exam w/o abnormal findings;R ecorded Elsewhere: No Locatio n: [facility] rce: EHR Chroni c: N Practice ID: 0001 Billa ble Time: 11:30:00 AM Not Available [facility] 0 15:51:38 Screening for malignant neoplasm of rectum Active 2016 Encounter for screening for malignant neoplasm of rectum;Rec orded Elsewhere: No Locatio n: [facility] rce: EHR Chroni c: N Practice ID: 0001 Billa ble Time: 11:30:00 AM Not Available [facility] 0 15:51:[address] Concept Active 2016 Encntr for director fundraising exam (general) (routine) w/o abn findings;R ecorded Elsewhere: No Locatio n: [facility] Edilma rce: EHR Chroni c: N Practice ID: 0001 Lucie ble Time: 11:30:00 AM Not Available [facility] 0 15:51:38 Problem Notes None recorded. Procedures Surgical History Date Name Laterality Status Provider Name and Address Organization Details Recorded Time 020 Vulvar Biopsy completed Katy Perdomo, [facility]- [address], [place], [address], [facility] 11/12/2019 11:36:25 Laparoscopy completed [facility] 10/15/2019 11:09:12 cholecystectomy completed [facility] 10/15/2019 11:09:18 Appendectomy completed [facility] 10/15/2019 11:09:25 hemorrhoidectomy completed [facility] 10/15/2019 11:09:35 Hysteroscopy completed [facility] 10/15/2019 11:09:58 Total Hysterectomy completed [facility] 10/15/2019 11:10:06 Cholecystectomy completed [facility] 10/15/2019 11:10:14 Imaging Results None recorded. Procedure Notes None recorded. Medical Equipment None Reported. Allergies Allergen ID Allergen Name Allergen Category Reaction Reaction Severity Criticality Documentation Date Start Date Code Code System Note Provider Name and Address Organization Details Recorded Time 1605 codeine medicatio n Not available Not available Not available 10/15/[address] [facility] 0 11:05:10 1606 Product containin g penicilli n (product) medicatio n Not available Not available Not available 10/15/2019 84207 8001 NAGI Osorio Juan [place], [place] - [facility] 0 11:05:15 Medications Name Sig Start Date Stop Date Status Note LastModified by Organization Details LastModified Time alendrona te 70 mg tablet 11/11 completed Not Available Not Available Not Available clobetaso l 0.05 % topical cream apply by topical route every day a thin layer to the affected area(s) 2013 active Prescrib ed Elsewher e: No Locat ion: [facility] odify By: mandie tz Encou nter DateTime : 12/03/19 14 01:30:00 PM Not Available Not Available Not Available Diflucan 150 mg tablet take 1 tablet (150MG) by oral route once 08/25 completed Prescrib ed Elsewher e: No Locat ion: [facility] odify By: adriana collins DateTime : 12/13/19 11 10:00:00 AM Not Available Not Available Not Available tramadol 50 mg tablet 10/14 completed Not Available Not Available Not Available nystatin- triamcino lone 100,000 unit/gram -0.1 % topical ointment APPLY TO THE AFFECTED AREA(S) BY TOPICAL ROUTE 2 TIMES PER DAY x 4wks 11/11 completed Not Available Not Available Not Available Baby Aspirin 81 mg chewable tablet chew 1 tablet by oral route every day 12/09 completed Prescrib ed Elsewher e: Yes Loca tion: [facility] odify By: srinivas Gonzalez ncounter DateTime : 12/10/19 11 08:10:30 PM Not Available Not Available Not Available Nizoral 2 % topical cream apply by topical route every day to the affected area(s) 08/25 completed Prescrib ed Elsewher e: No Locat ion: [facility] odify By: adriana collins DateTime : 12/13/19 11 10:00:00 AM Not Available Not Available Not Available Estrace 0.01% (0.1 mg/gram) vaginal cream Insert 1gm PV @ HS 2x/wk for maintena nce. 2019 active Not Available Not Available Not Avai lable Infuvite Adult 3300 unit-150 mcg/10 mL intraveno us solution active Prescrib ed Elsewher e: Yes Loca tion: [facility] odify By: mandie zurita DateTime : 12/10/19 11 08:10:30 PM Not Available Not Available Not Available Calcio Savana 500 mg tablet 08/25 completed Prescrib ed Elsewher e: Yes Loca tion: [facility] odify By: adriana collins DateTime : 12/10/19 11 08:10:30 PM Not Available Not Available Not Available Fosamax active Not Available Not Avail able Not Available clobetaso l 10/14 completed Not Available Not Available Not Available mvi, adult no.1 with vit K 10/14 completed Not Available Not Available Not Available Fluzone High-Dose 2019-20 (PF) 180 mcg/0.5 mL intramusc ular syringe 10/14 completed Not Available Not Available Not Available Vitals Date Recorded Body height Body mass index (BMI) Body weight Systolic And Diastolic Provider Name and Address Organization Details Last Updated DateTime 10/15/2019 154.94 cm 28.7 kg/m2 33345.04 g 120/74 mm[Hg] [facility] 10/15/2019 12:28:53 Date Recorded Body height Body mass index (BMI) Body weight Systolic And Diastolic Provider Name and Address Organization Details Last Updated DateTime 11/12/2019 154.94 cm 28.5 kg/m2 94161.45 g 120/78 mm[Hg] [facility] 11/12/2019 11:11:32 Social History None recorded. Functional Status None recorded. Mental Status None recorded. Family History Relationship Description Onset Age of this Age Resolved Age Notes LastModified by Organization Details LastModified Time Mother Coronary arterioscler osis [email or web address] Not available 2019 11:08:08 Maternal Uncle Coronary arterioscler osis [email or web address] Not available 2019 11:08:08 Father Coronary arterioscler osis [email or web address] Not available 2019 11:08:08 Father Aneurysm Not available 10/15/2019 11:08:38 Father Toxic emphysema [email or web address] Not available 2019 11:08:48 Notes:Father: aneurysm, Emph ysema Maternal uncle: Coronary artery disease Mother: Coronary artery disease Medical History No medical history recorded. Gynecological History Statement/Question Response Current Control Method None Obstetrics History GPAL:G 0 P 0 0 0 0 Past Encounters Encounter ID Performer Location Encounter Start Date Encounter Closed Date Diagnosis/Indication Diagnosis SNOMED-CT Code Diagnosis ICD10 Code Diagnosis IMO Codes Diagnosis Note [id number] Katy Perdomo , [facility] [address] [address] 10/15/2019 12:16:45 10/15/2019 13:00:28 Gynecologic examination [id number] Z01.419 Take Calcium with Vitamin D 12-1500mg daily. Do monthly self breast exams. It is advised to get annual flu shot in the fall and she could obtain at [facility] or [facility] clinic. If you haven't received the Tdap vaccine in the last 10 years you should obtain one as well. Have mammogram yearly, bone density every 2-3 years and colonoscop y every 5-10 years depending on findings and history. Engage in daily exercise of low impact aerobic exercise 45-60 minutes 4-5 times weekly. Avoid tobacco and illicit drugs as well as using moderation with alcohol intake less than 1-2 8 oz beverages daily. This lifestyle behavior pattern will lead to less health conditions and longer life span. If BMI greater than 25 weight watchers or dietary consult advised. Questions have been answered. 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 She is SA but limited & this is causing dyspareuni a with insertion. She is postmenopa usal with CARI-BSO 1974 for non-cancer indication s. Suspect Lichen's. Because she is highly irritated today of vulva we agreed to schedule separate appt for vulvar bx & will start VCG's, mycolog ointment, and vag estrogen therapy since she is very tender in this area. Schedule Vulvar bx & med check x 4wks. Vag cx's sent to r/o infection Daily moisturizi ng also instructed & VCG sheet given for home review. Counseled on medication mycolog & vag estrogen therapy R/B's, Most common side effects, & use. All questions were answered to patient satisfacti on PATRIA [facility] [address] [address] 11/12/2019 10:57:21 11/12/2019 11:43:59 Vaginal irritation 126174873 N89.8 Here for Vulvar bx suspect LS but want to confirm. She has started vag estrace cream & is tolerating it well. She will continue this portion in addition to vulvar care guidelines & daily moisturizi ng then f/u x 2mos. We will await results & decide how long her use of mycolog will be moving forward. Postproced ure instructio ns given. Will call with results. Time spent in visit is a total of 15 mins with at least 50% of visit consisting of counseling and review of plan of care not including time spent on procedure. . Health Concerns Section Related Observation LastModified by Organization Detai ls LastModified Time None Recorded Concern Status LastModified by Organization Details LastModified Time None Recorded Advance Directives Directive None Recorded Payers Insurance Date Sequence Insurance Name Policy Number Policy Rankin Covered Member ID Rankin Member ID Guarantor Name 05/18/2020 1 MEDICARE-[place] (MEDICARE) Deandra Gilliam [id number] 01/11/2020 2 [employer] - MAIL [employer] BENEFIT PLAN (POS II) [id number] Deandra Green Gilliam [id number] Notes Date Note Type Note Provider Name and Address Organization Details Recorded Time 0 text/html Annual GYNReported by PatientHistoryFor history, patient reportsno gynecologic complaints.Genitourina ry symptomsFor menstrual cycle, patient reportsnormal menses. For urinary symptoms, patient reportsno hematuriaandno incontinence. For vulva, patient reportsno genital lesion. For vagina, patient reportsnormal vaginal discharge.Breast symptomsFor breast, patient reportsno breast pain,no breast lump, andno nipple discharge.Contraceptio nFor current contraception, (postmenopause).Endocr ine symptomsFor sexual complaints, patient reportsno sexual complaints,no pain during intercourse, andnormal libido. For menopausal symptoms, patient reportsno menopausal symptomsandnormal vaginal lubrication.Psychologi edelmira symptomsFor psychological symptoms, patient reportsno depression,no anxiety, andno pmdd.Preventative measuresFor preventive measures, patient reportsencourage self breast examination,encourage regular exercise,encourage no tobacco use,encourage regular mammograms starting age 40,needs to schedule mammogram, andup to date on colonoscopy screening(dexa 2017). Katy Perdomo [facility] [address], [place], [address], [facility] 10/15/2019 12:57:36 0 text/html ROS as noted in the HPI Here for vulvar bx & med check of estrace. Katy Perdomo [facility] [address], [place], [address], [facility] 11/12/2019 11:37:04 OBGyn Episode Ob Episode Information Episode Created Date Number of Fetuses Patient Bloodtype Patient rh Status Prepregnancy Weight lbs Domestic Partner Domestic Partner Phone Father Name Backwinder Status 10/15/19 20 1 CLOSED Fetus Data First Name Last Name Admitted to NICU Weight (g) Sex Living Outcome Pediatric Complications Fetus ID Race Codes Race Delivery Type 3624 Vaginal Delivery Gustavo Calculation Initial Gustavo Date Initial Exam Date Initial Exam Provider Initial Ultrasound Date Last Menstrual Period Date Ultra Sound Weeks Gestation 0 Eighteen To Twenty Week Gustavo Update Ultra Sound Date Fundal Height At Umbil Quickening Date Ultra Sound Latest Weeks Gestation Final Gustavo Confirmed By Final Gustavo Confirmed Date Final Gustavo Date Ultra Sound Latest Days Gestation 0 0 Menstrual History Last Menstrual Date Menses Monthly On Bcp Conception Prior Menses Frequency Hcg Plus Date Menarche Onset Age Delivery Information Delivery Date Delivery Type Labor Anesthesia Weeks Gestation Incision Type Labor Labor Length Hrs Delivered By Post Complications Tubal Sterilization Discharge Date Comments 0 Discharge Information Feeding Method Contraceptive Method Maternal HG B and HCT Levels Ob Episode Information Episode Created Date Number of Fetuses Patient Bloodtype Patient rh Status Prepregnancy Weight lbs Domestic Partner Domestic Partner Phone Father Name Backwinder Status 10/15/19 20 1 CLOSED Fetus Data First Name Last Name Admitted to NICU Weight (g) Sex Living Outcome Pediatric Complications Fetus ID Race Codes Race Delivery Type 3625 Vaginal Delivery Gustavo Calculation Initial Gustavo Date Initial Exam Date Initial Exam Provider Initial Ultrasound Date Last Menstrual Period Date Ultra Sound Weeks Gestation 0 Eighteen To Twenty Week Gustavo Update Ultra Sound Date Fundal Height At Umbil Quickening Date Ultra Sound Latest Weeks Gestation Final Gustavo Confirmed By Final Gustavo Confirmed Date Final Gustavo Date Ultra Sound Latest Days Gestation 0 0 Menstrual History Last Menstrual Date Menses Monthly On Bcp Conception Prior Menses Frequency Hcg Plus Date Menarche Onset Age Delivery Information Delivery Date Delivery Type Labor Anesthesia Weeks Gestation Incision Type Labor Labor Length Hrs Delivered By Post Complications Tubal Sterilization Discharge Date Comments 7 Discharge Information Feeding Method Contraceptive Method Maternal HG B and HCT Levels
== END 2025-01-11 08:33 | disposition home or self-care (01) ==
LOC: CHSLAB 08:33
PROVIDERS: PCP Family Medicine; Visit Provider Family Medicine
DX: E03.9 Hypothyroidism, unspecified (principal); M85.80 Other specified disorders of bone density and structure, unspecified site
CPT/HCPCS: 99199

== ENCOUNTER 2025-01-14 09:31 | Outpatient (CLI) | payer MEDICARE, SELFPAY ==
[2025-01-14 09:48] LABS: Hematocrit 43.9 % (35.0-42.0); Hemoglobin 14.5 g/dL (11.7-13.8); Immature Granulocyte Percent A 0.4 % (0.0-0.0); Lymphocytes Absolute Auto 2.25 K/mm3 (1.10-4.50); Mean Corpuscular HGB Conc 33.0 g/dL (32-36); Mean Corpuscular Hemoglobin 30.1 pg (27.0-31.0); Mean Corpuscular Volume 91.3 fL (78.0-102.0); Nucleated Red Blood Cells Absolute Auto 0.00 K/mm3 (0.00-0.00); Nucleated Red Blood Cells Perc 0.0 % (0-0.0); Platelet Count Result 301 K/mm3 (150-420); Red Blood Count 4.81 M/mm3 (4.20-5.40); White Blood Count 7.4 K/mm3 (4.8-10.8)
[2025-01-14 10:09] LABS: Alanine Aminotransferase 27 U/L (6-35); Albumin Level 4.7 g/dL (3.5-5.1); Alkaline Phosphatase 79 U/L (38-126); Anion Gap 8 mmol/L (4-12); Aspartate Amino Transferase 34 U/L (14-36); Bilirubin,Total 1.8 mg/dL (0.2-1.3); Blood Urea Nitrogen 16 mg/dL (7-17); Calcium 9.7 mg/dL (8.4-10.2); Carbon Dioxide 27 mmol/L (22-30); Chloride 101 mmol/L (98-107); Cholesterol 192 mg/dL (0-200); Estimated Glomerular Filt Rate > 60; Glucose 100 mg/dL (65-110); HDL Direct 73 mg/dL; Osmolality Calculated 283 mOsm/kg (285-295); Potassium 4.3 mmol/L (3.4-5.0); Sodium 136 mmol/L (137-145); Total Protein 7.6 g/dL (6.3-8.2); Triglycerides 77 mg/dL (<150)
--- OUTSIDE RECORDS SUMMARY | 2025-01-14 10:13 | XMS_ITS | Clinical Summary ---
Author Organization [facility] Address [address] [place] [address] Care Team Providers Care E Commerce Developer Name Role Phone Unavailable Primary Care Provider Unavailabl e Social History Tobacco Use Types Packs/Day Years Used Date Smoking Tobacco: Never Assessed Comments Unknown Sex and Gender Information Value Date Recorded Sex Assigned at Not on file Legal Sex Female 6:16 PM CDT Gender Identity Not on file Sexual Orientation Not on file Plan of Treatment Health Maintenance Due Date Last Done Comments DTaP, Tdap and Td Vaccines ( 1 - Tdap) 08/18/1962 Pneumococcal Vaccine: 50+ Ye ars (1 of 1 - PCV) 08/18/1993 Zoster Vaccines (1 of 2) 08/18/1993 Dexa Scan (General) 08/18/2008 RSV Immunization or 60+ Years (1 - 1-dose 75+ series) 08/18/2018 COVID-19 Vaccine (2024-2 6 season) 2024 Influenza Adult (#1) 2024 Hepatitis A Vaccines Aged Out No long er eligible based on patient's age to complete this topic Meningococcal B Vaccine Aged Out No l onger eligible based on patient's age to complete this topic Meningococcal Vaccine Aged Out No austin sury eligible based on patient's age to complete this topic RSV Immunizations Under 20 Months Aged Out No longer eligible based on patient's age to complete this topic
--- OUTSIDE RECORDS SUMMARY | 2025-01-14 10:13 | XMS_ITS | Data Portability ---
Author Organization [facility] [place] Address [address] [place] [address] Assessment Encounter Date Assessment Date Assessment LastModified [...] (0.1 mg/gram) vaginal cream 2019 020 [facility]FACE [id number] [address], [place], [id number], 0 11:35:46 nystatin- triamcino lone 100,000 unit/gram -0.1 % topical ointment 2019 020 [email or web address] [facility] #[id number], [address], [place], [id number], 0 11:11:40 Estrace 0.01% (0.1 mg/gram) vaginal cream 2019 020 [email or web address] [facility] #26342, [address], [place], [id number], 0 11:11:38 Patient TargetsNo targets recorded. Patient Instructions Encounter Date Encounter Id Patient Instructions Last Modified By Organization Details Last Modified Time 10/15/2019 [id number] [email or web address] Not available 12:50:39 11/12/2019 [id number] [email or web address] Not available 11:33:21 Reason for Referral [...] [address], [facility] [address] , Issac Vargas ra, DO, Labor atory Direc tor. Gardn erell a vagin dayday, Aide da speci es: Genom ic DNA is isola carroll from patie nt speci mens by stand molly labor atory techn iques and rosie zed using custo m OpenA rray plate s, perfo rmed on the [employer] Studi o 12K Flex Real Time PCR syste m. A posit matthias resul t is provi ded for patho genic bacte michaela, virus and/o r funga l speci es based on detec tion of ampli ficat ion produ cts. Melonie l vagin al kaushal resul ts of Melonie l or Ubly carroll are deter mined by calcu latin [...] e tamika cteri stics deter mined by [employer], [employer] d/b/a PathG [employer]. It has not been clear ed or appro lee ann by the U.S. Food and Drug Admin istra tion. The FDA has deter mined that such clear ance or appro gianfranco is not neces tali. Perti nent refer ence inter vals are avail able from the labor atory on reque st. Test( s) perfo rmed by [employer]oc [employer] Patho [employer], [employer], d/b/a PathCornell clarke, [address] [place] [address] , Issac Vargas ra, DO, Labor atory Direc tor. Not Available [facility] ([facility]) [address] [facility] [address], [place], [address], 10/19/2019 20:07:08 10/15/19 20 10/19/2019 bacte rial [...] [address], [facility] [place] [address] , Issac Vargas ra, DO, Labor atory [...] kaushal resul ts of Melonie l or Ubly carroll are deter mined by calcu latin [...] e tamika cteri stics deter mined by [employer], [employer] d/b/a Path [employer]. It has not been clear ed or appro lee ann by the U.S. Food and Drug Admin istra tion. The FDA has deter mined that such clear ance or appro gianfranco is not neces tali. Perti nent refer ence inter vals are avail able from the labor atory on reque st. Test( s) perfo rmed by [employer], [employer], d/b/a Path tricia, [address], [place] [address] , Issac Vargas ra, DO, Labor atory Direc tor. Not Available [facility]) [address], [place], [address], 10/19/2019 20:07:08 10/15/19 20 10/19/2019 bacte rial [...] ing error . Test perfo rmed by [employer], [employer], d/b/a PathG roup, [address], [place] [address] , Issac Vargas ra, DO, Labor atory Direc tor. Chela erell a vagin dayday, Aide da speci es: Genom ic DNA is isola carroll from patie nt speci mens by stand mloly labor atory techn iques and rosie zed using custo m OpenA rray plate s, perfo rmed on the [employer] Studi o 12K Flex Real Time PCR syste m. A posit matthias resul t is provi ded for patho genic bacte michaela, virus and/o r funga l speci es based on detec tion of ampli ficat ion produ cts. Melonie l vagin al kaushal resul ts of Melonie l or Ubly carroll are deter mined by calcu latin [...] ator organ isms with diffe rent relat mtathias ratio s, which would influ ence the final resul ts. Resul ts shoul d be inter prete d in the gail xt of all clini edelmira and labor atory findi ngs. The test was devel oped and its perfo rmanc e tamika cteri stics deter mined by Assoc iated Patho logis ts, [facility] d/b/a PathG roup. It has not been [...] [address], [place] [address] , Issac Vargas ra, DO, Labor atory Direc tor. Not Available [facility] ([facility]) [address], [place], [address], 10/19/2019 20:07:08 11/12/19 20 11/17/2019 surgi edelmira [...] Techn ical servi tamara provi ded by [facility] [email or web address] Patho [employer], d/b/a [employer] [address] [place] [address] Prasanna Brizuela MD, Labor [employer] tor. Case revie wed and diagn osis rende red at [facility] [email or web address] Patho logis [email or web address], d/b/a [employer], [address], [place] [address] Kingston Blancas MD, Labor [employer] tor. CONFI DENTI AL Not Available [facility] ([facility]) [address], [place], [address], 11/17/2019 18:12:11 11/04/19 20 11/04/2019 MAMMO , scree ricky, bilat eral No observ ation record ed. [facility] (Lab) [address] [facility] [address], [place], [address], 11/05/2019 12:57:06 Result Notes None recorded. Problems Name Problem SNOMED Code Status Onset Date Resolution Date Notes Provider Name and Address Organization Details Recorded Time Screening for malignant neoplasm of cervix Active 2010 Screening for malignant neoplasms of the cervix;Rec orded Elsewhere: No Locatio n: [facility] Edilma rce: EHR Chroni c: N Practice ID: 0001 Billa ble Time: 10:00:00 AM Not Available [facility] 0 15:51:38 Adult health examinatio n Active 2010 Routine Medical Exam;Recor ded Elsewhere: No Locatio n: [facility] rce: EHR Chroni c: N Practice ID: 0001 Billa ble Time: 10:00:00 AM Not Available [facility] 0 15:51:38 Vaginitis and vulvovagin itis Active 2010 Vaginitis; Recorded Elsewhere: No Locatio n: [facility] rce: EHR Chroni c: N Practice ID: 0001 Billa ble Time: 10:00:00 AM Not Available [facility] 0 15:51:38 Vitiligo 81275095 Active 2011 Vitiligo;R ecorded Elsewhere: No Locatio n: [facility] rce: EHR Chroni c: N Practice ID: 0001 Billa ble Time: 10:00:00 AM Not Available [facility] 0 15:51:38 Specialize d medical examinatio n Active 2013 Gynecologi edelmira Examinatio n;Recorded Elsewhere: No Locatio n: [facility] rce: EHR Chroni c: N Practice ID: 0001 Billa ble Time: 01:30:00 PM Not Available [facility] 0 15:51:38 Acute vulvitis 95971242 Active 2015 Vulvitis;R ecorded Elsewhere: No Locatio n: [facility] rce: EHR Chroni c: N Practice ID: 0001 Billa ble Time: 11:45:00 AM Not Available [facility] 0 15:51:[address] Concept Active 2016 Encntr for general adult medical exam w/o abnormal findings;R ecorded Elsewhere: No Locatio n: [facility] rce: EHR Chroni c: N Practice ID: 0001 Billa ble Time: 11:30:00 AM Not Available [facility] 0 15:51:38 Screening for malignant neoplasm of rectum Active 2016 Encounter for screening for malignant neoplasm of rectum;Rec orded Elsewhere: No Locatio n: [facility] rce: EHR Chroni c: N Practice ID: 0001 Billa ble Time: 11:30:00 AM Not Available [facility] 0 15:51:[address] Concept Active 2016 Encntr for filer repairer exam (general) (routine) w/o abn findings;R ecorded Elsewhere: No Locatio n: [facility] Edilma rce: EHR Chroni c: N Practice ID: 0001 Lucie ble Time: 11:30:00 AM Not Available [facility] 0 15:51:38 Problem Notes None recorded. Procedures Surgical History Date Name Laterality Status Provider Name and Address Organization Details Recorded Time 020 Vulvar Biopsy completed Katy Perdomo, [facility]- [address], [place], [address], [facility] 11/12/2019 11:36:25 Laparoscopy completed [facility] 10/15/2019 11:09:12 cholecystectomy completed [facility] 10/15/2019 11:09:18 Appendectomy completed [facility] 10/15/2019 11:09:25 hemorrhoidectomy completed [facility] 10/15/2019 11:09:35 Hysteroscopy completed [facility] 10/15/2019 11:09:58 Total Hysterectomy completed [facility] 10/15/2019 11:10:06 Cholecystectomy completed [facility] 10/15/2019 11:10:14 Imaging Results None recorded. Procedure Notes None recorded. Medical Equipment None Reported. Allergies Allergen ID Allergen Name Allergen Category Reaction Reaction Severity Criticality Documentation Date Start Date Code Code System Note Provider Name and Address Organization Details Recorded Time 1605 codeine medicatio n Not available Not available Not available 10/15/2019 2670 RxNorm [facility] 0 11:05:10 1606 Product containin g penicilli n (product) medicatio n Not available Not available Not available 10/15/2019 93479 8001 NAGI Osorio [place], [place] - [facility] 0 11:05:15 Medications Name Sig Start Date Stop Date Status Note LastModified by Organization Details LastModified Time alendrona te 70 mg tablet 11/11 completed Not Available Not Available Not Available clobetaso l 0.05 % topical cream apply by topical route every day a thin layer to the affected area(s) 2013 active Prescrib ed Elsewher e: No Locat ion: [facility] odify By: mandie tz Encou nter DateTime : 12/03/19 14 01:30:00 PM Not Available Not Available Not Available Diflucan 150 mg tablet take 1 tablet (150MG) by oral route once 08/25 completed Prescrib ed Elsewher e: No Locat ion: [facility] odify By: adriana collins DateTime : 12/13/19 [...] Yes Loca tion: [facility] odify By: srinivas Gonzalez ncounter DateTime : 12/10/19 11 08:10:30 PM Not Available Not Available Not Available Nizoral 2 % topical cream apply by topical route every day to the affected area(s) 08/25 completed Prescrib ed Elsewher e: No Locat ion: [facility] odify By: adriana collins DateTime : 12/13/19 11 10:00:00 AM Not Available Not Available Not Available Estrace 0.01% (0.1 mg/gram) vaginal cream Insert 1gm PV @ HS 2x/wk for maintena nce. 2019 active Not Available Not Available Not Avai lable Infuvite Adult 3300 unit-150 mcg/10 mL intraveno us solution active Prescrib ed Elsewher e: Yes Loca tion: [facility] odify By: mandie zurita DateTime : 12/10/19 11 08:10:30 PM Not Available Not Available Not Available Calcio Savana 500 mg tablet 08/25 completed Prescrib ed Elsewher e: Yes Loca tion: [facility] odify By: adriana collins DateTime : 12/10/19 [...] Updated DateTime 10/15/2019 154.94 cm 28.7 kg/m2 31831.04 g 120/74 mm[Hg] [facility] 10/15/2019 12:28:53 Date Recorded Body height Body mass index (BMI) Body weight Systolic And Diastolic Provider Name and Address Organization Details Last Updated DateTime 11/12/2019 154.94 cm 28.5 kg/m2 29158.45 g 120/78 mm[Hg] [facility] 11/12/2019 11:11:32 Social History None recorded. [...] ICD10 Code Diagnosis IMO Codes Diagnosis Note [id number] Katy Perdomo , [facility] [address] [address] 10/15/2019 12:16:45 10/15/2019 13:00:28 Gynecologic examination [id number] Z01.419 Take Calcium with Vitamin D 12-1500mg daily. Do monthly self breast exams. It is advised to get annual flu shot in the fall and she could obtain at [facility] or [facility] clinic. 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 Katy Perdomo [facility] [address], [place], [address], [facility] 10/15/2019 12:57:36 0 text/html ROS as noted in the HPI Here for vulvar bx & med check of estrace. Katy Perdomo [facility] [address], [place], [address], [facility] 11/12/2019 11:37:04 OBGyn Episode Ob Episode Information Episode Created Date Number of Fetuses Patient Bloodtype Patient rh Status Prepregnancy Weight lbs Domestic Partner Domestic Partner Phone Father Name Piano Regulator Status 10/15/19 20 1 CLOSED Fetus Data [...] Domestic Partner Domestic Partner Phone Father Name Piano Regulator Status 10/15/19 20 1 CLOSED Fetus Data [...]
== END 2025-01-14 09:32 | disposition home or self-care (01) ==
LOC: CHSLAB 09:33
PROVIDERS: PCP Family Medicine; Visit Provider Family Medicine
DX: M19.90 Unspecified osteoarthritis, unspecified site (principal); M85.80 Other specified disorders of bone density and structure, unspecified site; Z13.6 Encounter for screening for cardiovascular disorders
CPT/HCPCS: 36415; 80053; 80061; 85025